=== PATIENT | female | born 1990 | race Caucasian/White ===

== ENCOUNTER 2021-08-09 17:36 | Inpatient (IN) | payer MEDICAID ==
[~2021-08-09] VITALS: Ht 167.6 cm; Wt 113.6 kg
[~2021-08-09 17:36] MED LIST: CLIN-97 PO; HYDR-4383 PO; PHEN-824 PO; POTA-207 PO
[2021-08-09 18:15] LABS: BASOPHILS % (AUTO) 0.5 % (0-1); EOSINOPHILS # (AUTO) 0.1 X10'3 (0-0.9); EOSINOPHILS % (AUTO) 0.8 % (0-6); HEMATOCRIT 41.7 % (35.0-45.0); HEMOGLOBIN 14.2 g/dl (12.0-16.0); LYMPHOCYTES # (AUTO) 2.6 X10'3 (1.1-4.8); MEAN CORPUSCULAR HEMOGLOBIN 29.9 PG (27.0-31.0); MEAN CORPUSCULAR HGB CONC 34.1 g/dL (33.0-36.5); MEAN CORPUSCULAR VOLUME 87.8 FL (78-98); MEAN PLATELET VOLUME 8.5 FL (7.4-10.4); MONOCYTES # (AUTO) 0.6 X10'3 (0-0.9); MONOCYTES % (AUTO) 7.2 % (2-12); NEUTROPHILS # (AUTO) 5.4 X10'3 (1.8-7.7); NEUTROPHILS % (AUTO) 61.5 % (42-75); PLATELET COUNT 269 X10'3 (140-440); RED BLOOD COUNT 4.74 X10'6 (4.20-5.60); RED CELL DISTRIBUTION WIDTH 13.8 % (11.5-14.5); WHITE BLOOD COUNT 8.8 X10'3 (4.5-11.0)
[2021-08-09 18:39] LABS: ALANINE AMINOTRANSFERASE 18 U/L (12-78); ALBUMIN 3.5 G/DL (3.4-5.0); ALBUMIN/GLOBULIN RATIO 0.9 (1.1-1.5); ALKALINE PHOSPHATASE 104 IU/L (46-116); ANION GAP 13 (8-16); ASPARTATE AMINO TRANSFERASE 10 U/L (10-37); BILIRUBIN,TOTAL 0.1 MG/DL (0.1-1.0); BLOOD UREA NITROGEN 16 MG/DL (7-18); BUN/CREATININE RATIO 22.9 (6.6-38.0); CALCIUM 8.9 MG/DL (8.5-10.1); CHLORIDE 104 MMOL/L (99-107); GLUCOSE 96 MG/DL (70-104); LIPASE 83 U/L (73-393); POTASSIUM 4.2 MMOL/L (3.5-5.1); SODIUM 140 MMOL/L (135-145); TOTAL CARBON DIOXIDE 23.1 MMOL/L (24-32); TOTAL PROTEIN 7.2 G/DL (6.4-8.2); eGFR > 90 ML/MIN
[2021-08-09] MEDS ORDERED: normal saline 1000ML IV soln IVB ONE (20:45)
[2021-08-09] MEDS ORDERED: morphine 4 MG/ML inj SYRINge IV PRN (20:45)
[2021-08-09] MEDS ORDERED: ketorolac trometh. 30mg/ml inj. IV ONE (20:45)
[2021-08-09] MEDS ORDERED: ondansetron/PF 4mg/2ml inj IV ONE (20:45)
[2021-08-09] MEDS ORDERED: temazepam 15mg capsule PO PRN (21:00)
--- NOTE | 2021-08-09 22:42 | NUR ---
DR ROMAN AT BEDSIDE ASSESSING PT
[2021-08-09] MEDS ORDERED: piperacillin/tazo 3.375gm/50ml 50 ML IV ONE (22:45)
[2021-08-09] MEDS ORDERED: mag hydrox/Alum hydrox/simeth 30ml oral suspension PO PRN (23:25)
[2021-08-09] MEDS ORDERED: HYDROcodone/acetaminophen 5mg/325mg tablet PO PRN (23:25)
[2021-08-09] MEDS ORDERED: morphine 2 MG/ML inj. syringe IV PRN ×2 (23:25)
[2021-08-09] MEDS ORDERED: magnesium 2GM in 50ml NS 50 ML IV PRN (23:25)
[2021-08-09] MEDS: normal saline 1000ml 1,000 ML IV SCH (23:25)
[2021-08-09] MEDS ORDERED: acetaminophen 325mg tablet PO PRN ×2 (23:25)
[2021-08-09] MEDS ORDERED: potassium CL 10mEq/100ml bag 100 ML IV PRN (23:25)
[2021-08-09] MEDS ORDERED: magnesium Cl slow-release 64mg tablet PO PRN (23:25)
[2021-08-09] MEDS ORDERED: ondansetron/PF 4mg/2ml inj IV PRN (23:25)
[2021-08-09] MEDS ORDERED: magnesium 4gm in 100ml NS 100 ML IV PRN (23:25)
[2021-08-09] MEDS ORDERED: potassium Cl 20 mEq SR tablet PO PRN ×2 (23:25)
[2021-08-09] MEDS ORDERED: NO HOME MEDS (23:46)
[2021-08-10] VITALS (21 sets, daily range): BP systolic 108–144; BP diastolic 68–89
[2021-08-10] MEDS: piperacillin/tazo 3.375gm/50ml 50 ML IV SCH ×3 (00:37→16:12)
[2021-08-10] MEDS: nicotine 14mg patch - 24hr TD SCH ×2 (00:37→08:37)
--- NOTE | 2021-08-10 01:00 | NUR ---
Report received from Adri CHRISTOPHER .Pt arrived on unit and roomed into room 346 A.Pt is AAOx 3 .VSS and in NAD.
--- NOTE | 2021-08-10 06:28 | NUR ---
Problems reprioritized. Patient report given, questions answered & plan of care reviewed with Corinna CHRISTOPHER.
--- NOTE | 2021-08-10 06:35 | NUR ---
Patient in room [facility] 346. I have received report from CANDI Ledesma and had the opportunity to ask questions and assume patient care.
[2021-08-10 06:36] LABS: BASOPHILS % (AUTO) 0.3 % (0-1); EOSINOPHILS % (AUTO) 0.5 % (0-6); HEMATOCRIT 37.6 % (35.0-45.0); HEMOGLOBIN 12.7 g/dl (12.0-16.0); LYMPHOCYTES # (AUTO) 2.5 X10'3 (1.1-4.8); LYMPHOCYTES % (AUTO) 30.3 % (21-51); MEAN CORPUSCULAR HEMOGLOBIN 29.8 PG (27.0-31.0); MEAN CORPUSCULAR HGB CONC 33.6 g/dL (33.0-36.5); MEAN CORPUSCULAR VOLUME 88.6 FL (78-98); MEAN PLATELET VOLUME 8.7 FL (7.4-10.4); MONOCYTES # (AUTO) 0.7 X10'3 (0-0.9); MONOCYTES % (AUTO) 8.9 % (2-12); PLATELET COUNT 241 X10'3 (140-440); RED BLOOD COUNT 4.25 X10'6 (4.20-5.60); RED CELL DISTRIBUTION WIDTH 14.3 % (11.5-14.5); WHITE BLOOD COUNT 8.4 X10'3 (4.5-11.0)
[2021-08-10 07:07] LABS: ALANINE AMINOTRANSFERASE 16 U/L (12-78); ALKALINE PHOSPHATASE 71 IU/L (46-116); ANION GAP 10 (8-16); ASPARTATE AMINO TRANSFERASE 21 U/L (10-37); BILIRUBIN,TOTAL 0.3 MG/DL (0.1-1.0); BLOOD UREA NITROGEN 14 MG/DL (7-18); BUN/CREATININE RATIO 18.7 (6.6-38.0); CALCIUM 8.4 MG/DL (8.5-10.1); CHLORIDE 107 MMOL/L (99-107); CHOL/HDL RATIO 2.9 (0.00-4.99); CHOLESTEROL 166 MG/DL (0-200); CREATININE 0.75 MG/DL (0.40-0.90); GLUCOSE 94 MG/DL (70-104); HDL CHOLESTEROL 57 MG/DL (35-60); LDL CHOLESTEROL 94 MG/DL (50-100); POTASSIUM 4.3 MMOL/L (3.5-5.1); SODIUM 142 MMOL/L (135-145); TOTAL CARBON DIOXIDE 24.8 MMOL/L (24-32); TOTAL PROTEIN 6.1 G/DL (6.4-8.2); TRIGLYCERIDES 47 MG/DL (20-135); eGFR 90 ML/MIN
[2021-08-10] MEDS: heparin, porcine 5000 units/ml vial SQ SCH ×2 (07:49→19:49)
[2021-08-10] MEDS: K and/or MAG REPLACEMENT MC SCH ×2 (08:00→20:00)
[2021-08-10 08:20] LABS: PREOP URINE HCG NEGATIVE (NEGATIVE)
[2021-08-10] MEDS: normal saline 1000ml 1,000 ML IV SCH ×2 (11:25→20:45)
[2021-08-10] MEDS ORDERED: proCHLORperazine 10 MG/2 ml inj IV PRN (15:30)
[2021-08-10] MEDS ORDERED: ringers solution, lacted 1,000 ML IV SCH (15:30)
[2021-08-10] MEDS ORDERED: ondansetron/PF 4mg/2ml inj IV PRN (15:30)
[2021-08-10] MEDS ORDERED: meperidine/PF 25mg/ml syringe IV PRN ×3 (15:30)
[2021-08-10] MEDS ORDERED: morphine 2 MG/ML inj. syringe IV PRN (15:30)
[2021-08-10] MEDS ORDERED: morphine 4 MG/ML inj SYRINge IV PRN (15:30)
--- NOTE | 2021-08-10 16:22 | NUR ---
Pt transported to OR via hospital bed, angela and at bedside. All belongings left in room 346A, jewelry given to sister for safekeeping. Report called to CANDI Khalil in recovery.
[2021-08-10] MEDS ORDERED: BUPIVAcaine 0.5% inj/PF 30 ML ONE (16:28)
[2021-08-10] MEDS ORDERED: fentaNYL /PF 50mcg/ml 5ml ampule ONE (16:40)
[2021-08-10] MEDS ORDERED: midazolam 1 mg/ML 2ml injection ONE (16:40)
[2021-08-10] MEDS ORDERED: rocuronium 10mg/ml inj IV ONE (16:42)
[2021-08-10] MEDS ORDERED: LIDOcaine 2% (20mg/ml) 5ml vial ONE (16:42)
[2021-08-10] MEDS ORDERED: propofol inj 20 ML IV ONE (16:42)
[2021-08-10] MEDS ORDERED: BUPIVAcaine 0.5% inj/PF 30 ml vial IJ ONE (17:00)
[2021-08-10] MEDS ORDERED: ketorolac trometh. 30mg/ml inj. ONE (17:43)
[2021-08-10] MEDS ORDERED: ondansetron/PF 4mg/2ml inj ONE (17:43)
[2021-08-10] MEDS ORDERED: HYDROcodone/acetaminophen 5mg/325mg tablet PO PRN (17:55)
--- NOTE | 2021-08-10 18:00 | NUR ---
Received from OR via HOSPITAL BED , accompanied by Anesthesiologist DR MIXON and report given by Anesthesiolgist. PT PRESNTS WITH PIV 20G LEFT FOREARM. ABD DRESSING CLEAN DRY AND INTACT. VSS. Addendum: 08/10/21 at 1932 by Simran Harvey RN, RN Amended: Links added.
--- NOTE | 2021-08-10 18:11 | NUR ---
Problems reprioritized. Patient report given, questions answered & plan of care reviewed with CANDI Ledesma.
--- NOTE | 2021-08-10 18:15 | NUR ---
Patient in room [facility] 346 B. I have received report from Corinna CHRISTOPHER and had the opportunity to ask questions and assume patient care.
--- NOTE | 2021-08-10 19:20 | NUR ---
Report called to receiving nurse SRIDEVI CHRISTOPHER. Transferred via HOSPITAL BED, PT Belongings LEFT IN PT ROOM 346A. PT BED IN LOW LOCKED POSITION WITH CALL LIGHT IN REACH, PT FAMILY IN ROOM WHEN PT ARRIVED. PT HOOKED UP TO VITALS MACHINE, Special Issues communicated to receiving nurse. Addendum: 08/10/21 at 1930 by Simran Harvey RN, RN Amended: Links added.
--- NOTE | 2021-08-10 19:30 | NUR ---
Received report from Simran CHRISTOPHER.Pt arrived on unit via hospital bed accompanied by RN .Patient settled into room 346 A.Pt ias awake alert and oriented.Assessment of lap site done;band aids x 3 ( 2 in the upper abdomen and one below the belly button) Family at bed side.Pts vital signs are stable ;in no acute distress.All questions answered to the best of this writers ability and patient care resumed.
[2021-08-10] MEDS: HYDROcodone/acetaminophen 10/325mg tab PO PRN (23:31)
[2021-08-11] VITALS: BP 135/85
[2021-08-11] MEDS: piperacillin/tazo 3.375gm/50ml 50 ML IV SCH ×2 (00:28→09:22)
[2021-08-11] MEDS: normal saline 1000ml 1,000 ML IV SCH (05:25)
--- NOTE | 2021-08-11 06:28 | NUR ---
Patient in room [facility] 346. I have received report from CANDI Ledesma and had the opportunity to ask questions and assume patient care.
[2021-08-11 07:00] VITALS: BP 108/62
[2021-08-11 07:00] LABS: BASOPHILS % (AUTO) 0.1 % (0-1); EOSINOPHILS % (AUTO) 0 % (0-6); HEMATOCRIT 39.8 % (35.0-45.0); HEMOGLOBIN 13.5 g/dl (12.0-16.0); LYMPHOCYTES # (AUTO) 1.1 X10'3 (1.1-4.8); MEAN CORPUSCULAR HGB CONC 33.8 g/dL (33.0-36.5); MEAN CORPUSCULAR VOLUME 88.8 FL (78-98); MEAN PLATELET VOLUME 8.8 FL (7.4-10.4); MONOCYTES # (AUTO) 0.2 X10'3 (0-0.9); MONOCYTES % (AUTO) 2.6 % (2-12); NEUTROPHILS # (AUTO) 8.4 X10'3 (1.8-7.7); NEUTROPHILS % (AUTO) 86.3 % (42-75); PLATELET COUNT 251 X10'3 (140-440); RED BLOOD COUNT 4.48 X10'6 (4.20-5.60); WHITE BLOOD COUNT 9.7 X10'3 (4.5-11.0)
[2021-08-11 07:14] LABS: ALBUMIN 2.7 G/DL (3.4-5.0); ANION GAP 10 (8-16); BILIRUBIN,TOTAL 0.3 MG/DL (0.1-1.0); BLOOD UREA NITROGEN 9 MG/DL (7-18); BUN/CREATININE RATIO 12.9 (6.6-38.0); CALCIUM 7.9 MG/DL (8.5-10.1); CHLORIDE 108 MMOL/L (99-107); GLUCOSE 105 MG/DL (70-104); POTASSIUM 4.2 MMOL/L (3.5-5.1); SODIUM 143 MMOL/L (135-145); TOTAL CARBON DIOXIDE 25.3 MMOL/L (24-32); TOTAL PROTEIN 5.9 G/DL (6.4-8.2); eGFR > 90 ML/MIN
[2021-08-11 07:15] LABS: ALANINE AMINOTRANSFERASE 35 U/L (12-78); ALBUMIN/GLOBULIN RATIO 0.8 (1.1-1.5); ALKALINE PHOSPHATASE 66 IU/L (46-116); ASPARTATE AMINO TRANSFERASE 28 U/L (10-37)
[2021-08-11] MEDS: K and/or MAG REPLACEMENT MC SCH (08:00)
[2021-08-11] MEDS: HYDROcodone/acetaminophen 10/325mg tab PO PRN ×2 (08:04→12:00)
[2021-08-11] MEDS: nicotine 14mg patch - 24hr TD SCH (08:05)
[2021-08-11] MEDS: heparin, porcine 5000 units/ml vial SQ SCH (08:06)
[2021-08-11] MEDS ORDERED: magnesium hydroxide 30ml (MOM) UD suspension PO PRN (10:30)
[2021-08-11] MEDS ORDERED: HYDR-3965 PO (10:51)
[2021-08-11 11:00] VITALS: BP 123/76
== END 2021-08-11 14:10 | disposition home or self-care (01) | DRG 263 ==
LOC: ER 17:37 → ED HOLD 23:30 → SUR 3N 08-10 00:43
PROVIDERS: ADMIT Internal Medicine; ATTEND Family Medicine
PROC: CF1C1ZZ Planar Nuclear Medicine Imaging of Hepatobiliary System, All using Technetium 99m (Tc-99m) (ICD-10-PCS; 2021-08-10)
PROC: 0FT44ZZ Resection of Gallbladder, Percutaneous Endoscopic Approach (ICD-10-PCS; principal; 2021-08-10 16:42)
DX: K80.00 Calculus of gallbladder with acute cholecystitis without obstruction (principal); E66.9 Obesity, unspecified; Z20.822 Contact with and (suspected) exposure to COVID-19; F12.90 Cannabis use, unspecified, uncomplicated; G89.29 Other chronic pain; F17.210 Nicotine dependence, cigarettes, uncomplicated; K82.8 Other specified diseases of gallbladder; Z68.41 Body mass index [BMI] 40.0-44.9, adult; Z71.6 Tobacco abuse counseling
CPT/HCPCS: 36415; 71045; 76700; 78226; 80053; 80061; 81025; 82948; 83605; 83690; 85025; 87040; 87081; 87635; 93005; 96374; 99285; A4215; A4618; A7000; A9537; G0378; J1644; J1885; J2175; J2250; J2270; J2405; J2543; J2704; J3010; J3490; J7030; S0020

== ENCOUNTER 2021-10-11 13:18 | Emergency (ER) | payer MEDICAID ==
[~2021-10-11] VITALS: Ht 170.2 cm; Wt 103.9 kg
[2021-10-11 14:03] VITALS: BP 146/96
[2021-10-11 14:25] LABS: CLARITY,URINE CLOUDY (Clear); COLOR,URINE YELLOW (Yellow); GLUCOSE, URINE NEGATIVE (Neg); KETONES,URINE NEGATIVE (Neg); LEUKOCYTE ESTERASE ,URINE SMALL (Neg); NITRITES, URINE NEGATIVE (Neg); OCCULT BLOOD,URINE MODERATE (Neg); PROTEIN,URINE 100 mg/dl (Neg); UROBILINOGEN,URINE 0.2 E.U/dL (0.2-1.0)
[2021-10-11 14:26] LABS: UA COLLECTION TYPE CLN CATCH MIDSTREAM
[2021-10-11 14:30] LABS: BACTERIA,URINE 1+ /HPF (Neg); RBC,URINE 50-100 /HPF (0-2); WBC CLUMPS,URINE MANY /HPF (NEGATIVE); WBC,URINE TNTC /HPF (0-4)
[2021-10-11 14:31] LABS: SQUAMOUS EPITHELIAL CELL,UR FEW /LPF (FEW)
[2021-10-11] MEDS ORDERED: CEPH-585 PO (16:22)
== END 2021-10-11 16:43 | disposition home or self-care (01) ==
LOC: ER 13:19
DX: N30.90 Cystitis, unspecified without hematuria (principal); J06.9 Acute upper respiratory infection, unspecified; R31.9 Hematuria, unspecified; R30.0 Dysuria; R35.89 Other polyuria; G89.29 Other chronic pain; F12.90 Cannabis use, unspecified, uncomplicated; Z87.448 Personal history of other diseases of urinary system; Z79.2 Long term (current) use of antibiotics
CPT/HCPCS: 71045; 81001; 99284